=== PATIENT | female | born 1935 | race Caucasian/White ===

== ENCOUNTER → 2016-11-30 | Outpatient (CLI) | payer MEDICARE, BC ==
--- NOTE | 2016-12-02 09:43 | MM ---
Reason for exam: screening (asymptomatic). Last mammogram was performed 1 year ago. History: Patient is postmenopausal and has history of other cancer at age 75. Physical Findings: A clinical breast exam by your physician is recommended on an annual basis and results should be correlated with mammographic findings. MG Screening Mammo w CAD Bilateral CC and MLO view(s) were taken. Prior study comparison: November 26, 2015, bilateral MG screening mammo w CAD. October 30, 2014, left breast MG work up mamm w CAD LT. There are scattered fibroglandular densities. Benign calcifications. Focal asymmetry upper right breast is stable. No significant changes when compared with prior studies. ASSESSMENT: Benign, BI-RAD 2 RECOMMENDATION: Routine screening mammogram of both breasts in 1 year.
== END | disposition home or self-care (01) ==
LOC: RADMAMWWP 16:01
PROVIDERS: ATTEND Family Medicine
DX: Z12.31 Encounter for screening mammogram for malignant neoplasm of breast (principal)

== ENCOUNTER 2018-04-07 10:46 | Day surgery (SDC) | payer MEDICARE, BC ==
[2018-04-05 17:32] VITALS: BMI 33.5
[~2018-04-07 10:46] MED LIST: LACTATED RINGERS 1,000 ML IV SCH; LIDOCAINE 1% 20 ML VIAL (10MG/ML) FOR IV START INTRADERMA PRN
[2018-04-07 11:46] VITALS: RESP 18; TEMP 98.1
[2018-04-07] MEDS ORDERED: LIDOCAINE 1% 20 ML VIAL (10MG/ML) FOR IV START INTRADERMA ONE (11:46)
[2018-04-07] MEDS ORDERED: LIDOCAINE 1% INJ 10MG/ML (20 ML MDV) ONE (12:43)
[2018-04-07] MEDS ORDERED: PROPOFOL 10 MG/ML 20 ML VIAL IV ONE (12:43)
--- NOTE | 2018-04-07 13:12 | P.PCN ---
Date of Procedure: 04/07/18 Procedure(s) Performed: Procedure: Esophagogastroduodenoscopy and esophageal dilation using the Microvasive bhrbjcw-ted-ndjzg balloon dilator size 10-12 mm. Preoperative diagnosis: Dysphagia and history of esophageal stricture last dilated in June 2014. Postoperative diagnosis: Proximal esophageal stricture that would not allow the passing of the 9.9 endoscope S/P dilation using the Microvasive through-the- scope balloon dilator size 10-12 mm. Preparation and sedation: Was provided by anesthesia. Brief clinical history: The patient is an 82-year-old female who I have evaluated back in June 2014 for dysphagia and abnormal barium enema and was found to have a proximal esophageal stricture that was dilated up to 12 mm. The patient is scheduled for this evaluation because of recurrence of her symptoms. Procedure: With the patient on her left lateral decubitus position and after informed consent and adequate sedation, I attempted to pass the Olympus-GIF Q160 video upper endoscope which measures around 9.9 mm, however, it appeared that there was resistance at the level of the proximal esophagus/ cricopharyngeus. So I proceeded to dilate the esophagus using the Microvasive [id number]-hmn-tcrei balloon dilator size 10-12 mm which was passed through the operating channel of the endoscope and centered at the level of the stricture and inflated in a stepwise fashion as previously done. After that, I was able to pass the endoscope down the esophagus. The area of resistance in the proximal esophagus appeared as a benign short stricture as previously described with satisfactory dilation. There was no obvious erosions or ulcers. The rest of the esophagus appeared normal. GE junction was around 40-41 cm from the incisors. There was a very small hiatal hernia. The endoscope was then passed into the stomach which was insufflated with air and inspected in detail including the retroflex view in the cardia. Stomach appeared within normal limits.. Pyloric channel, duodenal bulb, post bulbar area and descending duodenum appeared healthy. The patient tolerated the procedure well and did not have any immediate complications. Plan: The patient will be allowed clear liquid diet for today then she can advance her diet tomorrow as tolerated. I will see her in follow-up and make additional plans based on her course. I will keep you updated on her progress.
[2018-04-07 13:23] VITALS: BP 157/75; PULSE 62
== END 2018-04-07 13:59 | disposition home or self-care (01) ==
LOC: ORWHC2ENDO 10:46
DX: K22.2 Esophageal obstruction (principal); K44.9 Diaphragmatic hernia without obstruction or gangrene; K21.9 Gastro-esophageal reflux disease without esophagitis; I10 Essential (primary) hypertension; E78.5 Hyperlipidemia, unspecified; M19.90 Unspecified osteoarthritis, unspecified site; I25.10 Atherosclerotic heart disease of native coronary artery without angina pectoris; H91.90 Unspecified hearing loss, unspecified ear; I25.2 Old myocardial infarction; Z79.82 Long term (current) use of aspirin; Z79.890 Hormone replacement therapy; Z88.5 Allergy status to narcotic agent; Z88.8 Allergy status to other drugs, medicaments and biological substances; Z85.828 Personal history of other malignant neoplasm of skin
CPT/HCPCS: 43249; J2001; J2704; C1726